=== PATIENT | female | born 1990 | race Two or more races ===

== ENCOUNTER 2020-07-24 11:21 | Emergency (ER) | payer OTHER ==
[~2020-07-24] VITALS: Ht 162.6 cm; Wt 63.6 kg
[2020-07-24 15:05] VITALS: BP 140/80
[2020-07-24] MEDS ORDERED: IBUPROFEN 600 MG TABLET ONE (15:13)
[2020-07-24] MEDS ORDERED: IBUPROFEN 600 MG TABLET PO ONE (15:15)
== END 2020-07-24 15:11 | disposition home or self-care (01) ==
LOC: EMS 11:26
DX: S20.213A Contusion of bilateral front wall of thorax, initial encounter (principal); Y04.0XXA Assault by unarmed brawl or fight, initial encounter; Y93.89 Activity, other specified; Y92.89 Other specified places as the place of occurrence of the external cause; Y99.8 Other external cause status
CPT/HCPCS: 70450; 72125; 71046; 71046-TC; 84703-TC